=== PATIENT | male | born 1935 | race Caucasian/White ===

== ENCOUNTER → 2016-10-16 | Outpatient (CLI) | payer OTHER ==
[2016-10-16 08:50] LABS: BASOPHILS # (AUTO) 0.02 10*3/UL; BASOPHILS % (AUTO) 0.4 % (0-1); EOSINOPHILS % (AUTO) 5.7 % (0-8); HEMATOCRIT 41.5 % (42.0-52.0); HEMOGLOBIN 14.3 g/dL (14.0-18.0); IMM GRAN % (AUTO) 0.2 % (0-5); IMM GRAN# (AUTO) 0.01 10*3/UL; LYMPHOCYTES # (AUTO) 0.73 10*3/uL; LYMPHOCYTES % (AUTO) 15.4 % (10-50); MEAN CORPUSCULAR HEMOGLOBIN 32.3 PG (27-31); MEAN CORPUSCULAR HGB CONC 34.5 g/dL (33-37); MEAN PLATELET VOLUME 10.4 FL (7.4-12.2); MONOCYTES # (AUTO) 0.61 10*3/UL (0.3-0.8); MONOCYTES % (AUTO) 12.8 % (5-15); NEUTROPHILS # (AUTO) 3.11 10*3/UL; NEUTROPHILS % (AUTO) 65.5 % (50-80); RDW COEFFICIENT OF VARIATION 13.7 % (11.5-14.5); RED BLOOD COUNT 4.43 10^6/uL (4.70-6.10); WHITE BLOOD COUNT 4.75 10^3/uL (4.8-10.8)
[2016-10-16 08:55] LABS: PLATELET MORPHOLOGY COMMENT NORMAL MORPHOLOGY (NORM)
[2016-10-16 09:09] LABS: BLOOD UREA NITROGEN 45 mg/dL (7-22); BUN/CREATININE RATIO 34.61 (6-20); CHLORIDE 101 meq/L (98-112); CREATININE 1.3 mg/dL (0.70-1.50); POTASSIUM 4.8 meq/L (3.8-5.2); SODIUM 140 meq/L (135-145)
[2016-10-16 09:10] LABS: ASPARTATE AMINO TRANSFERASE 21 IU/L (21-57); CALCIUM 9.1 mg/dL (8.7-10.7); GLUCOSE 154 mg/dL (78-110); TOTAL PROTEIN 7.8 g/dL (6.1-8.0)
[2016-10-16 10:12] LABS: LDL CHOLESTEROL,CALCULATED 130.2 mg/dL
[2016-10-18 08:10] LABS: CREATININE, URINE 83.6 MG/DL (15-500)
[2016-10-19 09:03] LABS: MEAN BLOOD GLUCOSE (CALC) 153.76 mg/dL
[2016-10-19 09:05] LABS: HEMOGLOBIN A1C 7.2 % (4.2-6.0)
== END ==
LOC: LAB 08:23
PROVIDERS: ATTEND Internal Medicine
DX: E11.9 Type 2 diabetes mellitus without complications (principal); Z79.4 Long term (current) use of insulin; D64.9 Anemia, unspecified; E78.5 Hyperlipidemia, unspecified; R79.89 Other specified abnormal findings of blood chemistry
CPT/HCPCS: 36415; 80053; 80061; 82043; 83036; 85025; 99214; J3420

== ENCOUNTER → 2016-10-21 | Outpatient (CLI) | payer OTHER | LOC: LAB 12:05 | PROVIDERS: ATTEND Internal Medicine | DX: I50.9 Heart failure, unspecified (principal); K80.20 Calculus of gallbladder without cholecystitis without obstruction; K85.10 Biliary acute pancreatitis without necrosis or infection | CPT/HCPCS: 83880; 99212; G0463 ==

== ENCOUNTER 2016-10-29 06:33 | Day surgery (SDC) | payer OTHER ==
[~2016-10-29 06:33] MED LIST: LIDOCAINE W/ SODIUM BICARB 0.5 ML SYR ONE; Lactated Ringers 1,000 ML PRIMARY IV ONE; ceFAZolin Inj 2gm (Premix) 0 ML IV ONE
--- NOTE | 2016-10-29 06:42 | MINORPROC ---
Outpatient History & Physical Chief Complaint: pt had gallstone pancreatitis. Present Illness: pt had gallstone pancreatitis. has been cleared for surgery by receptionist nurse Past History: see office notes History: General: WNL, HEENT: WNL, Respiratory: WNL, Cardiovascular: ABN ( CAD) , Gastrointestinal: ABN (gallstones), Endocrine: ABN (IDDM) Physical Exam: General: WNL, Head/Neck: WNL, Chest/Lungs: WNL, Heart: WNL, Abdomen: WNL Home Medications: Home Medications Medication Instructions Recorded Confirmed Type Antiox #11/Om3/Dha/Epa/Lut/Gretchen 1 tab-cap PO DAILY 12/16/12 09/29/16 History [Ocuvite Adult 50+ Softgel] Multivit-Min/FA/Lycopene/Lut 1 tab PO DAILY 12/16/12 09/29/16 History [Centrum Silver Tablet] Blood-Glucose Meter [Freestyle 1 unit MC ONCE #1 12/17/12 09/29/16 Clinic [place] Lite] Fish Oil/Fat No.8/Hrb Comb.137 1 tab PO DAILY cap 12/13/13 09/29/16 History [[place] 3-6-9 1,200 Mg Softgel] JPM-Cyanocobalamin [Jpm - Vitamin 1,000 mcg IM MONTHLY #0 ml 06/08/14 09/29/16 Clinic B-12 Inj] [place], Insulin Disposable [Pen 1 each MC AC #100 box 12/06/14 09/29/16 Clinic [place]] Albuterol/Ipratrop Neb Soln 1 vial INH Q4-6HRSPRN PRN #120 box 10/29/15 Clinic [Duoneb Neb Soln] Carbidopa/Levodopa [Sinemet Cr 1 tab PO TID #270 tab 10/29/15 09/29/16 Clinic 50-200 Tablet] Finasteride [Proscar] 5 mg PO DAILY #90 tab 10/29/15 09/29/16 Clinic Levothyroxine Sodium 1 tab PO DAILY #90 tab 10/29/15 09/29/16 Clinic Ropinirole HCl 1 mg PO TID #270 tab 10/29/15 09/29/16 Clinic Tamsulosin HCl [Flomax] 1 cap PO QHS #90 cap 11/28/15 09/29/16 Clinic Insulin Detemir [Levemir Flextouch] 8 - 16 unit SQ BID #15 ml 06/04/16 09/29/16 Clinic Blood Sugar Diagnostic [Accu-Chek 1 each MC TID #300 strip 06/05/16 09/29/16 Clinic [place] Plus] Allopurinol 1 tab-cap PO DAILY #90 tab 07/28/16 09/29/16 Clinic Insulin Aspart [Novolog Flexpen] 100 unit SUBCUT AC #15 ml 08/14/16 09/29/16 Clinic Nitroglycerin 1 tab SL PRN PRN #2 bottle 08/15/16 09/29/16 Clinic Lubiprostone [Amitiza] Sample #10 09/03/16 Clinic Isosorbide Mononitrate [Isosorbide 30 mg PO QD #30 tab 10/02/16 Clinic Mononitrate Er] Torsemide 40 mg PO DAILY #60 tab 10/02/16 Clinic Ramipril 1 cap PO EVERY AM #90 cap 10/08/16 Clinic Potassium Chloride 1 tab PO QD #90 tab 10/15/16 Clinic Ferrous Sulfate 325 mg PO DAILY #30 tab 10/16/16 History Minocycline HCl 50 mg PO BID #14 cap 10/24/16 Clinic Allergies/Adverse Reactions: Allergies Allergy/AdvReac Type Severity Reaction Status Date / Time oxybutynin Allergy Severe confusion Verified 09/29/16 09:16 Impression / Plan: gallstones. Pt to have lap billy with IOC Transfusion: Transfusion Not Anticipated Anesthesia Plans: General ASA Class: Class 3 : Severe Systemic Disease Under Control
[2016-10-29] MEDS ORDERED: Bacteriostatic NaCl Inj 30ml Vial ONE (07:19)
[2016-10-29] MEDS ORDERED: BUPIVACAINE 0.25% W/ EPI - 10 ML VIAL ONE ×2 (07:20→09:05)
[2016-10-29] MEDS ORDERED: ONDANSETRON 4 MG/2 ML VIAL IVP PRN ×2 (07:23→09:53)
[2016-10-29] MEDS ORDERED: Ondansetron ODT Tab 8 MG TAB PO PRN (07:23)
[2016-10-29] MEDS ORDERED: ATROPINE SULFATE 0.4 MG/1 ML VIAL IVP PRN (07:23)
[2016-10-29] MEDS ORDERED: ePHEDrine Inj 50 MG/ML AMP IVP PRN (07:23)
[2016-10-29] MEDS ORDERED: fentaNYL Inj 100 MCG/2 ML VIAL IVP PRN (07:23)
[2016-10-29] MEDS ORDERED: HYDROmorphone 2 MG/1 ML IVP PRN (07:23)
[2016-10-29] MEDS ORDERED: NORMAL SALINE 10 ML SYRINGE FLUSH IVP PRN ×2 (07:23→09:53)
[2016-10-29] MEDS ORDERED: Iothalamate Meglumine 30 ML VIAL IV ONE (07:24)
[2016-10-29] MEDS ORDERED: Lactated Ringers 1,000 ML PRIMARY IV SCH ×2 (07:30→10:00)
[2016-10-29] MEDS ORDERED: KETAMINE 100 MG/1 ML - 5 ML ONE (07:53)
[2016-10-29] MEDS ORDERED: MIDAZOLAM 5 MG/1 ML ONE (07:53)
[2016-10-29] MEDS ORDERED: LIDOCAINE MPF 2% - 5 ML (20 MG/1 ML) ONE (07:54)
[2016-10-29] MEDS ORDERED: ROCURONIUM 10 MG/1 ML - 5 ML VIAL IVP ONE (07:54)
[2016-10-29] MEDS ORDERED: Sodium Chloride 0.9% vial 10 ML ONE (07:54)
[2016-10-29] MEDS ORDERED: Sodium Chloride 0.9% 100 ML IV ONE (08:12)
[2016-10-29] MEDS ORDERED: AMPICILLIN/SULBACTAM 1.5 GM VIAL IV ONE (08:12)
[2016-10-29] MEDS ORDERED: ePHEDrine Inj 50 MG/ML AMP ONE (08:39)
[2016-10-29] MEDS ORDERED: Lactated Ringers 1,000 ML PRIMARY IV ONE (09:09)
[2016-10-29] MEDS ORDERED: NEOSTIGMINE 1 MG/1 ML - 10 ML ONE (09:19)
[2016-10-29] MEDS ORDERED: GLYCOPYRROLATE 0.2 MG/1 ML VIAL ONE (09:19)
[2016-10-29] MEDS: fentaNYL Inj 250 MCG/5 ML VIAL ONE ×3 (09:50→10:10)
[2016-10-29] MEDS ORDERED: HYDROcodone-APAP 7.5 MG-325 MG TABLET PO PRN (09:53)
[2016-10-29] MEDS ORDERED: MORPHINE SULFATE 2 MG/1 ML IVP PRN (09:53)
--- NOTE | 2016-10-29 09:53 | GEN.OPNOTE ---
Operative Note Surgery Date: 10/29/16 Preoperative Diagnosis: Cholelithiasis Postoperative Diagnosis: Cholelithiasis Procedure: Laparoscopic cholecystectomy Surgeon: Luis Morgan MD [employer] Rewinder: Richardson Reddy MD Anesthesia Provider: Aurora Bethea CRNA Anesthesia Type: General Estimated Blood Loss (mL): 5 Fluids: 1500 mL of LR. 1.5 g Unasyn Pathology: Gallbladder sent Indications: Patient has cholelithiasis with history of gallstone pancreatitis. He had a normal MRCP that showed no evidence, duct stones Findings: Chronic cholecystitis with cholelithiasis. Adhesions of the omentum to the gallbladder and liver Complications: None Operative Summary: Patient was brought in the operating room. Placed in supine position. Given general anesthetic. Was prepped draped sterile fashion. Timeout performed per protocol Quarter percent Marcaine was infiltrated at all trocar sites. Small incision made below the umbilicus. Veress needle inserted pneumoperitoneum obtained. After adequate pneumoperitoneum a 10 mm trocar was placed using the Visiport. Under direct laparoscopic visualization a 10 mm trocar subxiphoid and 2 -5 mm in the midclavicular and midaxillary line. Appropriate instrument were placed. Patient had large intra-abdominal fat pad. He also had adhesions of the omentum to the gallbladder and liver. Adhesions to the gallbladder were taken down with sharp dissection and electrocautery. This allowed exposure to the gallbladder. Gallbladder grasped at the fundus retracted over the liver edge. Gallbladder was grasped at Christian's pouch. The cystic duct was dissected free. 3 hemoclips placed 2 proximally one distally and the cystic duct was divided. Likewise the cystic artery was dissected free 3 hemoclips placed and divided. There is a small posterior branch that was hemoclipped. The gallbladder was dissected off liver's edge using electrocautery. The gallbladder was then removed through a subumbilical incision. The abdominal cavity was irrigated until clear. The trochars were removed. The umbilicus incision was closed with 0 Vicryl suture to the fascia. The skin was reapproximated using 4-0 Vicryl simple sutures. The remainder trocar sites were 5 mm defects we will close. The remainder skin incisions closed with 4-0 Vicryl. Steri-Strips applied sterile dressings applied. Patient transferred to recovery room in stable condition. Counts were correct
[2016-10-29 10:03] VITALS: RESP 15
[2016-10-29 10:07] VITALS: TEMP 97
[2016-10-29] MEDS ORDERED: HYDROcodone-APAP 7.5 MG-325 MG TABLET PO ONE (10:40)
== END 2016-10-29 12:32 | disposition home or self-care (01) ==
LOC: SDSC 06:33
PROVIDERS: ATTEND Surgery
DX: K80.10 Calculus of gallbladder with chronic cholecystitis without obstruction (principal)
CPT/HCPCS: 00790; 47562 ×3; A4216; J2704; J3010; Q9961; J0295; J0690; J2001; J2250; J2710; J7050; J7120

== ENCOUNTER → 2016-10-31 | Outpatient (CLI) | payer OTHER | LOC: MMPC 11:11 | PROVIDERS: ATTEND Physician Assistant Medical | DX: K59.03 Drug induced constipation (principal); L03.311 Cellulitis of abdominal wall; R60.0 Localized edema | CPT/HCPCS: 99213; G0463 ==

== ENCOUNTER → 2016-11-06 | Outpatient (CLI) | payer OTHER | LOC: MMPC 11:11 | PROVIDERS: ATTEND Surgery | DX: Z90.49 Acquired absence of other specified parts of digestive tract (principal) ==

== ENCOUNTER → 2016-11-14 | Outpatient (CLI) | payer OTHER | LOC: MMPC 11:11 | PROVIDERS: ATTEND Internal Medicine | DX: E53.8 Deficiency of other specified B group vitamins (principal) | CPT/HCPCS: G0463; J3420 ==

== ENCOUNTER → 2016-11-18 | Outpatient (CLI) | payer OTHER | LOC: MMPC 11:11 | PROVIDERS: ATTEND Internal Medicine | DX: I50.9 Heart failure, unspecified (principal); E78.5 Hyperlipidemia, unspecified; E11.9 Type 2 diabetes mellitus without complications; E53.8 Deficiency of other specified B group vitamins | CPT/HCPCS: 99214; G0463 ==

== ENCOUNTER → 2017-01-14 | Outpatient (CLI) | payer OTHER | LOC: MMPC 11:11 | PROVIDERS: ATTEND Internal Medicine | DX: E53.8 Deficiency of other specified B group vitamins (principal) | CPT/HCPCS: G0463; J3420 ==

== ENCOUNTER → 2017-01-30 | Outpatient (CLI) | payer OTHER ==
[2017-01-30 12:14] LABS: BUN/CREATININE RATIO 33.84 (6-20); CALCIUM 9.5 mg/dL (8.7-10.7)
== END ==
LOC: MOB LAB 09:20
PROVIDERS: ATTEND Nurse Practitioner
DX: I50.9 Heart failure, unspecified (principal); I10 Essential (primary) hypertension
CPT/HCPCS: 36415; 80048; 83880; 99213; G0463

== ENCOUNTER → 2017-02-13 | Outpatient (CLI) | payer OTHER | LOC: MMPC 11:11 | PROVIDERS: ATTEND Internal Medicine | DX: E53.8 Deficiency of other specified B group vitamins (principal) | CPT/HCPCS: G0463; J3420 ==

== ENCOUNTER → 2017-02-20 | Outpatient (CLI) | payer OTHER ==
[2017-02-20 08:31] LABS: BASOPHILS # (AUTO) 0.04 10*3/UL; BASOPHILS % (AUTO) 0.8 % (0-1); EOSINOPHILS # (AUTO) 0.37 10*3/UL; EOSINOPHILS % (AUTO) 7.1 % (0-8); HEMATOCRIT 42.4 % (42.0-52.0); HEMOGLOBIN 14.5 g/dL (14.0-18.0); LYMPHOCYTES # (AUTO) 1.01 10*3/uL; MEAN CORPUSCULAR HEMOGLOBIN 31.7 PG (27-31); MEAN CORPUSCULAR HGB CONC 34.2 g/dL (33-37); MEAN CORPUSCULAR VOLUME 92.6 FL (80-90); MEAN PLATELET VOLUME 9.9 FL (7.4-12.2); MONOCYTES # (AUTO) 0.66 10*3/UL (0.3-0.8); MONOCYTES % (AUTO) 12.6 % (5-15); NEUTROPHILS # (AUTO) 3.13 10*3/UL; NEUTROPHILS % (AUTO) 59.8 % (50-80); RED BLOOD COUNT 4.58 10^6/uL (4.70-6.10)
[2017-02-20 08:34] LABS: PLATELET MORPHOLOGY COMMENT NORMAL MORPHOLOGY (NORM); RBC MORPHOLOGY COMMENT NORMAL MORPHOLOGY (NORM); WBC MORPHOLOGY COMMENT NORMAL MORPHOLOGY (NORM)
[2017-02-20 08:42] LABS: HEMOGLOBIN A1C 6.25 % (4.2-6.0)
[2017-02-20 08:47] LABS: BUN/CREATININE RATIO 24.61 (6-20); CALCIUM 9.1 mg/dL (8.7-10.7); SERUM ALBUMIN 3.9 g/dL (3.5-4.8)
[2017-02-20 08:59] LABS: CHOL/HDL RATIO 7.25 RATIO (0-4.0)
[2017-02-20 09:11] LABS: CREATININE, URINE 57.8 MG/DL (15-500)
== END ==
LOC: LAB 08:15
PROVIDERS: ATTEND Internal Medicine
DX: E11.9 Type 2 diabetes mellitus without complications (principal); Z79.4 Long term (current) use of insulin; E78.5 Hyperlipidemia, unspecified; I50.9 Heart failure, unspecified; E53.8 Deficiency of other specified B group vitamins
CPT/HCPCS: 36415; 80053; 80061; 82043; 82550; 82607; 83036; 83880; 85025

== ENCOUNTER → 2017-02-26 | Outpatient (CLI) | payer OTHER | LOC: MMPC 11:11 | PROVIDERS: ATTEND Internal Medicine | DX: E11.9 Type 2 diabetes mellitus without complications (principal); E78.5 Hyperlipidemia, unspecified; E03.9 Hypothyroidism, unspecified; G20 Parkinson's disease | CPT/HCPCS: 99214; G0463 ==

== ENCOUNTER → 2017-03-13 | Outpatient (CLI) | payer OTHER | LOC: MMPC 11:11 | PROVIDERS: ATTEND Internal Medicine | DX: E53.8 Deficiency of other specified B group vitamins (principal) | CPT/HCPCS: G0463; J3420 ==

== ENCOUNTER → 2017-04-17 | Outpatient (CLI) | payer OTHER | LOC: MMPC 11:11 | PROVIDERS: ATTEND Internal Medicine | DX: E53.8 Deficiency of other specified B group vitamins (principal) | CPT/HCPCS: G0463; J3420 ==